=== PATIENT | female | born 1960 | race Asian ===

== ENCOUNTER 2017-06-18 21:42 | Emergency (ER) | payer OTHER ==
--- NOTE | 2017-06-18 21:54 | ED Physician Documentation ---
PD HPI FEMALE - Stated complaint Stated Complaint: CHILLS/DYSURIA - Chief complaint Chief Complaint: Abd Pain - History obtained from History obtained from: Patient - History of Present Illness Timing - onset: Today Timing - details: Gradual onset Associated symptoms: No: Fever Similar symptoms before: Has not had sx before Recently seen: Not recently seen - Additional information Additional information: c/o urinary frequency, burning dysuria, right low back pain. Review of Systems Constitutional: denies: Fever Cardiac: reports: Reviewed and negative Respiratory: reports: Reviewed and negative GI: reports: Reviewed and negative : reports: Dysuria, Frequency PD PAST MEDICAL HISTORY - Past Medical History Past Medical History: Yes Cardiovascular: Hypertension Endocrine/Autoimmune: Type 1 diabetes - Past Surgical History Past Surgical History: No - Present Medications Home Medications: Ambulatory Orders Medication Instructions Recorded Confirmed Ciprofloxacin HCl [Cipro] 500 mg PO BID #13 tablet 06/18/17 Empagliflozin [Jardiance] 25 mg PO DAILY 06/18/17 06/18/17 Fenoplex` 160 mg PO DAILY 06/18/17 06/18/17 Metformin HCl 1,000 mg PO DAILY 06/18/17 06/18/17 Phenazopyridine HCl [Pyridium] 200 mg PO TID #7 tablet 06/18/17 Telmisartan/Hydrochlorothiazid 40 mg PO DAILY 06/18/17 06/18/17 [Micardis Hct 40-12.5 mg Tablet] - Allergies Allergies/Adverse Reactions: Allergies Allergy/AdvReac Type Severity Reaction Status Date / Time No Known Drug Allergies Allergy Verified 06/18/17 22:04 PD ED PE NORMAL - Vitals Vital signs reviewed: Yes - General General: Alert and oriented X 3, No acute distress, Well developed/nourished - Cardiac Cardiac: RRR, No murmur - Respiratory Respiratory: No respiratory distress, Clear bilaterally - Abdomen Abdomen: Soft, Non tender - Back Back: No CVA TTP - Derm Derm: No rash Results - Vitals Vitals: Oxygen O2 Source Room air - Labs Labs: Microbiology 06/18/17 22:00 Urine Culture - Preliminary Urine,Clean Catch Laboratory Tests 06/18/17 06/18/17 06/18/17 22:00 22:00 22:21 POC Whole Bld Glucose 229 H Urine Color YELLOW Urine Clarity HAZY Urine pH 5.5 Ur Specific [place] 1.010 1.010 Urine Protein NEGATIVE Urine Glucose (UA) >=1000 H Urine Ketones 15 H Urine Occult Blood TRACE-LYSE Urine Nitrite NEGATIVE Urine Bilirubin NEGATIVE Urine Urobilinogen 0.2 (NORMAL) Ur Leukocyte Esterase NEGATIVE Urine RBC 0-5 Urine WBC >25 H Urine WBC Clumps PRESENT Ur Epithelial Cells FEW Transitional Ur Squamous Epith Cells FEW Squamous Urine Bacteria Rare Ur Microscopic Review INDICATED Urine Culture Comments INDICATED Urine HCG, Qual NEGATIVE PD MEDICAL DECISION MAKING - ED course Complexity details: reviewed results, re-evaluated patient, considered differential, d/w patient Departure - Departure Disposition: 01 Home, Self Care Clinical Impression: Urinary tract infection Condition: Good Instructions: ED UTI Cystitis Female Prescriptions: Ciprofloxacin HCl [Cipro] 500 mg PO BID #13 tablet Phenazopyridine HCl [Pyridium] 200 mg PO TID #7 tablet Comments: Follow up with your doctor if the symptoms have not improved after 2-3 days on the antibiotic Discharge Date/Time: 06/18/17 23:31
[2017-06-18 22:09] LABS: BILIRUBIN,URINE NEGATIVE (NEGATIVE); GLUCOSE, URINE (UA) >=1000 mg/dL (NEGATIVE); KETONES,URINE (UA) 15 mg/dL (NEGATIVE); LEUKOCYTE ESTERASE, URINE NEGATIVE (NEGATIVE); NITRITE,URINE NEGATIVE (NEGATIVE); OCCULT BLOOD,URINE TRACE-LYSE (NEGATIVE); PH,URINE 5.5 PH (5.0-7.5); PROTEIN,URINE NEGATIVE (NEGATIVE); UROBILINOGEN,URINE 0.2 (NORMAL) E.U./dL (NORMAL)
[2017-06-18 22:11] LABS: CLARITY,URINE HAZY (CLEAR); HCG UR QUAL NEGATIVE
[2017-06-18 22:25] LABS: BACTERIA,URINE Rare /HPF (None Seen); EPITHELIAL CELLS,UR FEW Transitional /HPF (<= Few); RBC,URINE 0-5 /HPF (0-5); SQUAMOUS EPITHELIAL CELL,UR FEW Squamous (<= Few); WBC CLUMPS,URINE PRESENT
[2017-06-18] MEDS ORDERED: PHENAZOPYRIDINE 100 MG TABLET PO STA (23:20)
[2017-06-18] MEDS ORDERED: CIPROFLOXACIN 250 MG TABLET PO STA (23:20)
[2017-06-18 23:22] VITALS: BP 116/70
== END 2017-06-18 23:31 | disposition home or self-care (01) ==
LOC: ED 21:42
DX: N39.0 Urinary tract infection, site not specified (principal); I10 Essential (primary) hypertension; E10.9 Type 1 diabetes mellitus without complications
CPT/HCPCS: 81001; 81025; 87077; 87086; 87181; 99283; A9270; 81003